=== PATIENT | female | born 1995 | race Caucasian/White ===

== ENCOUNTER 2017-07-03 04:03 | Emergency (ER) | payer OTHER ==
[~2017-07-03] VITALS: Ht 160 cm; Wt 60.8 kg
[~2017-07-03 04:03] MED LIST: DOXY100C2 PO
[2017-07-03 04:04] VITALS: TEMP 36.5; Ht 160 cm; Wt 60.8 kg
--- NOTE | 2017-07-03 04:18 | EMERGENCY ROOM VISIT NOTE ---
History Report prepared by Sunday: Reji Edwards Under the Supervision of: Dr. Leslie Jain D.O. First contact with patient: 04:04 Chief Complaint: ALCOHOL OVERDOSE Stated Complaint: ALCOHOL History of Present Illness HPI is limited due to altered mental state secondary to alcohol intoxication. The patient is a 21 year old female who presents to the Emergency Room via EMS with complaints of a recent alcohol overdose. EMS states that the patient was found sleeping under a stairwell at one of the apartment buildings. Patient states that she last remembers being in the lobby of [facility]. She states that she had 2 drinks tonight at [facility]. She states she drank a vodka soda. Patient denies falling tonight. She states that she graduated from [employer] last September. She denies having sex tonight. She denies a history of heart problems or diabetes. 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 She adds that she recently moved to [place] from [place]. Source of History: patient, EMS History Limited By: AMS (secondary to alcohol intoxication) Review of Systems ROS is limited due to altered mental state secondary to alcohol intoxication. Past Medical & Surgical Medical Problems: (1) Asthma (2) HSP (Henoch Schonlein purpura) Surgical Problems: (1) History of tonsillectomy (2) History of wisdom tooth extraction Family History Cancer FHx: gallbladder disease Hypertension Social History Smoking Status: Never Smoker Alcohol Use: none Drug Use: none Marital Status: single Housing Status: lives with roommate Occupation Status: employed Current/Historical Medications Scheduled Control Pills ( Control Pills), 1 TAB PO DAILY Allergies Coded Allergies: No Known Allergies (Unverified , 07/03/17) Physical Exam Vital Signs Date Time Temp Pulse Resp B/P (MAP) Pulse Ox O2 Delivery O2 Flow Rate FiO2 07/03/17 07:49 133 18 104/63 98 Room Air 07/03/17 06:15 86 16 128/63 96 Room Air 07/03/17 05:38 70 16 112/71 96 Room Air 07/03/17 04:23 84 07/03/17 04:21 99 Room Air 07/03/17 04:04 36.5 109 16 127/94 98 Room Air Physical Exam General: Patient smells of alcohol. HEENT: Head - normocephalic and atraumatic Pupils are 4mm, equal, round, and sluggishly reactive to light. Extraocular eye muscles are intact, and sclera are anicteric. Nose - moist nasal mucosa without discharge. Mouth - moist buccal mucosa. Oropharynx is nonerythematous and there is no tonsillar exudate or edema noted. Neck: Supple; no JVD, nuchal rigidity, cervical lymphadenopathy. Heart: Regular rate and rhythm. There is a normal S1 and S2 with no murmurs, clicks, or gallops appreciated. Lungs: Clear to auscultation bilaterally with no wheezes, rales, or rhonchi. Abdomen: Soft, completely nontender, nondistended, with good bowel sounds. There are no palpable pulsatile masses or hepatosplenomegaly. There is no guarding, rigidity, or rebound noted. Extremities: No evidence of cyanosis, clubbing, or edema. There are easily palpable peripheral pulses. Skin: warm and dry with good turgor and no rashes. Medical Decision & Procedures Laboratory Results 07/03/17 04:18 Test 07/03/17 04:18 Anion Gap 4.0 mmol/L (3-11) Est Creatinine Clear Calc Drug Dose 96.0 ml/min Estimated GFR () 129.1 Estimated GFR (Non- 111.3 BUN/Creatinine Ratio 16.4 (10-20) Calcium Level 8.9 mg/dl (8.5-10.1) Ethyl Alcohol mg/dL 235.0 mg/dl (0-3) Laboratory results per my review. ED Course 0405: Past medical records reviewed. The patient was evaluated in room B4. A complete history and physical exam was performed. The patient was placed in the prone position to avoid aspiration. They were observed on the child monitor and pulse oximeter. Labs were drawn as above 0505: The patient is sleeping and hemodynamically stable at this time. 0724: I reassessed the patient. She is wide awake and calling a sober friend to take her home. 0800: Upon reevaluation, the patient's sober friend has arrived. I discussed findings and results with her. She verbalized agreement of the treatment plan. She was discharged home. Medical Decision The patient is a 21 year old female who presents to the ED with a recent alcohol overdose. Differential diagnosis includes alcohol overdose, drug intoxication, head injury, hypothermia, and hypoglycemia. Lab results show alcohol = 235, normal renal function, and normal glucose. this is a 21-year-old female patient who presents to the emergency department after consuming too much alcohol. She was allowed to rest here in the emergency department until she was more sober I reviewed the events of the evening with the patient. I have encouraged her to avoid such excessive alcohol use in the future. She denies any trauma or drug use at this time. Medication Reconcilliation Current Medication List: was personally reviewed by me Blood Pressure Screening Patient's blood pressure: Normal blood pressure Blood pressure disposition: Did not require urgent referral Impression Primary Impression: Alcohol overdose Scribe Attestation The scribe's documentation has been prepared under my direction and personally reviewed by me in its entirety. I confirm that the note above accurately reflects all work, treatment, procedures, and medical decision making performed by me. Departure Information Dispostion Home / Self-Care Referrals No Doctor, Assigned (PCP) Forms HOME CARE DOCUMENTATION FORM, IMPORTANT VISIT INFORMATION Patient Instructions ED Overdose Alcohol, [facility]: [employer] Students and Alcohol Related Visits, My [facility] Additional Instructions Avoid such excessive alcohol use in the future. Tylenol 650 mg every 6 hours for headache. Drink plenty of fluids and take a bland diet today. Return to the emergency department for worsening symptoms or any medical concerns. Problem Qualifiers Primary Impression: Alcohol overdose Encounter type: initial encounter Injury intent: accidental or unintentional Qualified Codes: T51.91XA - Toxic effect of unspecified alcohol , accidental (unintentional), initial encounter
[2017-07-03 04:21] VITALS: O2SAT 99
[2017-07-03] MEDS ORDERED: BCPILLS PO (04:23)
[2017-07-03 04:50] LABS: CALCIUM 8.9 mg/dl (8.5-10.1); CREATININE 0.76 mg/dl (0.60-1.20); POTASSIUM 4.1 mmol/L (3.5-5.1)
[2017-07-03 07:49] VITALS: BP 104/63; PULSE 133; O2SAT 98
== END 2017-07-03 08:00 | disposition home or self-care (01) ==
LOC: EDBD 04:03 → C.EDB 04:04
DX: T51.0X1A Toxic effect of ethanol, accidental (unintentional), initial encounter (principal); J45.909 Unspecified asthma, uncomplicated; Z79.3 Long term (current) use of hormonal contraceptives; Z80.9 Family history of malignant neoplasm, unspecified; Z83.79 Family history of other diseases of the digestive system; Z82.49 Family history of ischemic heart disease and other diseases of the circulatory system